=== PATIENT | female | born 1995 | race Caucasian/White ===

== ENCOUNTER 2024-04-12 15:42 | Outpatient (AMB) | payer OTHER, SELFPAY ==
[2024-04-12 15:44] VITALS: BP 122/66; BMI 24.7
--- NOTE | 2024-04-12 15:44 | A.OFFPC_ITS ---
Vital Signs 04/12/24 15:44 Height 5 ft 6 in Weight 153 lb BMI 24.7 BP 122/66 Blood Pressure Location Lt brachial Position Sitting Intake Visit Reasons: establish care/ PE Intake Note: Patient reported feeling depressed and anxious in the past 2 weeks but declined the questionaires because she has a therapist. Telecommunications Facility Examiner Required: No Allergies ciprofloxacin [Cipro] Allergy (Unknown, Verified 04/12/24 15:57) nausea and vomiting Medication List - Last Reconciled 04/12/24 by Stefani Ojeda PA-C albuterol sulfate mg inhalation hydroxyzine HCl 25 mg PO TID Tobacco use date assessed: 04/12/24 Dental Screening Dental Screen Date: 04/12/24 Did you have a dental visit in the last 12 months?: Yes Did you have a dental problem in the last 6 months where you did not have access to dental care?: No Was dental information given to patient?: Patient has dentist HPI establish care/ PE HPI Details 28-year-old female with no documented [facility] medical history coming to the office for the 1st time. Patient is not known to [facility]. Patient was previously seeing [facility] for anxiety and is still seeing a counselor there. She does mention she has been having increased anxiety since her medication has been discontinued and she has only been using is PRN. She follows with [facility] gynecology and has regular pap smears. She has also been followed with GI for chronic constipation and was supposed to have colonoscopy twice however had to be canceled due to poor prep. She states she has lots of issues with constipation and has chronic stomach pain. She has bowel movements inconsistently but never longer than 4-5 days without a bowel movement. She also mentions she has been having hair loss for the last year. 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 1. Little interest or pleasure in doing things: several days 2. Feeling down, depressed, or hopeless: more than half the days 3. Trouble falling or staying asleep, or sleeping too much: not at all 4. Feeling tired or having little energy: several days 5. Poor appetite or overeating: not at all 6. Feeling bad about yourself - or that you are a failure or have let yourself or your family down: several days 7. Trouble concentrating on things, such as reading the newspaper or watching television: not at all 8. Moving or speaking so slowly that other people could have noticed. Or the opposite - being so fidgety or restless that you have been moving around a lot m ore than usual: not at all 9. Thoughts that you would be better off or of hurting yourself in some way: not at all Total score: 5 Depression Screening Interpretation: Positive Depression Screening Follow-up: Existing condition, In treatment and New Medication prescribed Depression Screening Done: Yes 91098 - PHQ-9 Billing: Yes Source: Developed by Drs. Jay Feliciano, Leticia Moreno, Ronny Petersen and colleagues, with an educational everardo from [employer]. Thrive Questionnaire Date Thrive assessed: 04/12/24 I am a: Patient What is your living situation today?: I have a steady place to live Within the past 12 months, did the food you bought not last and you didn't have the money to get more?: Never true Within the past 12 months, did you worry whether your food would run out before you got money to buy more?: Never true THRIVE Score: 0 LINA-7 AMB Questionnaire LINA-7 Date LINA - 7 assessed: 04/12/24 Feeling nervous, anxious, or on edge: 1 = Several days Not being able to stop or control worryin = Nearly every day Worrying too much about different things: 3 = Nearly every day Trouble relaxin = More than half the days Being so restless that it is hard to sit still: 0 = Not at all Becoming easily annoyed or irritable: 2 = More than half the days Feeling afraid as if something awful might happen: 1 = Several days Total LINA-7 score (0-4 normal; 5-9 mild; 10-14 moderate; 15-21 severe): 12 Source: Developed by Drs. Jay Feliciano, Leticia Moreno, Ronny Petersen and colleagues, with an educational everardo from [employer]. LINA-7 Assessment Billing LINA-7 Assessment Tool: LINA-7 Assessment 97913 Review of Systems Const Denies body aches, Denies fatigue, Denies fever(s), Denies frequent falls, Reports headache(s) (occasional ) and Denies weakness Eyes Reports no additional complaints and Denies change in vision ENT Denies dysphagia, Denies dizziness, Denies facial pain, Reports headache(s) (occasional ), Denies nasal congestion and Denies odynophagia Card Denies chest pain, Denies syncope, Denies irregular heart rhythm, Denies leg edema, Denies lightheadedness and Denies dyspnea Resp Denies cough and Denies dyspnea GI Reports abdominal pain (with constipation), Reports constipation, Denies dysphagia, Denies dyspepsia, Denies diarrhea, Denies nausea, Denies odynophagia and Denies vomiting Denies urinary frequency, Denies dysuria, Denies urinary hesitancy and Denies urinary urgency Musc Denies back pain and Denies myalgias Skin/Breast Details: hair loss Neuro Denies dizziness, Denies syncope, Denies frequent falls, Reports headache(s) (occasional ) and Denies weakness Psych Reports no additional complaints Endo Denies fatigue Physical exam (Primary Care) BMI result Body Mass Index 24.7 Tobacco/Smoking Status: Current everyday smoker Are you ready to quit: Yes Tobacco cessation counseling provided: Yes Relapse Prevention: discussed the importance of a supportive environment and discussed dietary, exercise and/or lifestyle changes Number of minutes spent counselin CPT code: 03679 - 4-10 Minutes Depression Screening Interpretation: Positive Depression Screening Follow-up: Existing condition, In treatment and New Medication prescribed Advance Care Planning discussion: Completed/Scanned Date of discussion: 04/12/24 Who was present: Patient, grandmother Forms completed: Health Care Proxy and MOLST Time spent: 1-15 minutes, not on file Actual minutes spent: 5 Did not discuss due to Cultural/Spiritual beliefs: No Const General: cooperative, healthy appearing, comfortable and no acute distress Orientation/consciousness: patient oriented x3 HENMT Head: Yes normocephalic Ears: hearing grossly normal bilaterally General nose exam: Normal external nose present Eyes General: appearance normal, both eyes and all related structures Conjunctivae: conjunctivae normal Neck Neck: Yes full ROM and Yes no lymphadenopathy Resp Effort & Inspection: normal respiratory effort Auscultation: clear to auscultation bilaterally, no crackles, no rales, no rhonchi and no wheezes Cardio Rate: regular rate Rhythm: regular rhythm Skin General skin exam: no rashes or lesions noted Neuro General: patient oriented x3 Gait exam (Neuro): Normal gait present Extrem General: Yes normal to inspection, Yes full ROM and No edema Psych Affect: normal affect Attitude: cooperative Insight: Good insight present (Psych) Judgement: Good judgement present (Psych) Assessment and Plan Assessment & Plan (1) Depression: Code(s): F32.A - Depression, unspecified Plan: Continue to follow with [facility] for counselor and switch from p.r.n. hydroxyzine to once daily dosing. (2) Anxiety: Code(s): F41.9 - Anxiety disorder, unspecified Plan: She feels the hydroxyzine is working for her when she does have anxiety. Continue to follow with [facility] for counselor and switch from p.r.n. hydroxyzine to once daily dosing. (3) Asthma: Code(s): J45.909 - Unspecified asthma, uncomplicated Plan: Strongly advised to stopped smoking. Continue to use albuterol inhaler as needed and avoid triggers such as smoking and allergens. (4) Tobacco abuse: Code(s): Z72.0 - Tobacco use Plan: Strongly advised to stop smoking. Nicotine gum prescribed today. (5) Constipation: Code(s): K59.00 - Constipation, unspecified Plan: Patient has long history of constipation and was previously being followed by [facility] GI and was due to undergo a colonoscopy which was canceled twice due to bad prep. Advised patient to follow up with GI either at [facility] or [facility]. Referral placed today. (6) Hair loss: Code(s): L65.9 - Nonscarring hair loss, unspecified Plan: Ordered for blood work to look for again a cause of hair loss. Consider referral to Dermatology if blood work is negative. Plan Routine blood work ordered. Follow up in 3 months for annual exam. This note was constructed using voice recognition software. While every effort has been made to ensure accuracy and invoicing specialist, still areas may have been included sometimes these areas may affect the content or meeting of the given symptoms. Total time spent caring for the patient today was 30 minutes. This includes time spent before the visit reviewing the chart, time spent during the visit, and time spent after the visit and documentation. Orders: Orders IRON PROFILE Today L65.9 - Nonscarring hair loss, unspecified Complete Blood Count Auto Diff Today Z00.00 - Encounter for general adult medical examination without abnormal findings Vitamin D 25-OH (D2 and D3) Today Z00.00 - Encounter for general adult medical examination without abnormal findings Comprehensive Met. Panel Today Z00.00 - Encounter for general adult medical examination without abnormal findings Free T4 (Free Thyroxine) Today Z00.00 - Encounter for general adult medical examination without abnormal findings TSH reflex Free T4 Today Z00.00 - Encounter for general adult medical examination without abnormal findings Lipid Panel Today Z00.00 - Encounter for general adult medical examination without abnormal findings Vitamin B12 and Folate Today Z00.00 - Encounter for general adult medical examination without abnormal findings Referrals Gastroenterology Referral K59.00 - Constipation, unspecified Optometry Referral Z00.00 - Encounter for general adult medical examination without abnormal findings Medications: New hydroxyzine HCl 25 mg PO BID PRN 30 tabs 2RF anxiety albuterol sulfate 90 mcg/actuation 1 inh inhalation QID 8.5 grams 0RF nicotine (polacrilex) 4 mg buccal Q2H 20 ea 0RF Coding Level of Care Code New Pt Level 4 (63126) Diagnoses Depression F32.A Anxiety F41.9 Asthma J45.909 Tobacco abuse Z72.0 Constipation K59.00 Hair loss L65.9 Additional Codes LINA-7 Assessment Billing - LINA-7 Assessment Tool: LINA-7 Assessment 03531 ([id number]) Vital Signs *Quality* - CPT code: 65822 - 4-10 Minutes ([id number]) Vital Signs *Quality* - Advance Care Planning discussion: Completed/Scanned ([id number]) Vital Signs *Quality* - Time spent: 1-15 minutes, not on file ([id number])
== END 2024-04-12 16:30 | disposition home or self-care (01) ==
DX: K59.00 Constipation, unspecified (principal); F33.9 Major depressive disorder, recurrent, unspecified; F41.9 Anxiety disorder, unspecified; J45.909 Unspecified asthma, uncomplicated; F17.210 Nicotine dependence, cigarettes, uncomplicated; L65.9 Nonscarring hair loss, unspecified; Z00.00 Encounter for general adult medical examination without abnormal findings
CPT/HCPCS: 1123F; 99204

== ENCOUNTER 2024-07-12 14:33 | Outpatient (AMB) | payer OTHER, SELFPAY ==
--- OUTSIDE RECORDS SUMMARY | 2024-07-12 14:35 | XMS_ITS | Continuity of Care Document ---
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 Name Role Phone Fabiana Carrillo MD Primary Care Physician Encounter [facility] Date(s): 06/11/24 - 06/12/[address] [address]- Encounter Diagnosis Opioid withdrawal(Final) - 06/12/24 Discharge Disposition: A-D/C Home Attending Physician: Teresa Garland MD Admitting Physician: Teresa Garland MD Referring Physician: Not on Staff, Referring MD Encounter Type: Disch ES Allergies, Adverse Reactions, Alerts Substance Criticality Severity Reaction Reaction Severity Status ciprofloxacin Active Medications Albuterol (Eqv-ProAir HFA) See Instructions, Inhalation Every 6 hours, 0 Refills, Maintenance, 05/12/22 3:42:00 PM EDT, Partial fill upon patient request if the prescription is for a schedule II opioid drug. Start Date: 05/12/22 Status: Ordered Repeat number: 1 aspirin 325 mg oral delayed release tablet 325 mg, 1, tablet, By Mouth, Daily, # 25 tablet, Refills 0, Tot. Refills 0, Maintenance, 05/19/22 2:20:00 PM EDT, Route to Pharmacy Electronically, [facility], Partial fill upon patientrequest if the prescription is for a schedule II opioid drug., 168, cm, 05/19/22 12:12:00 EDT, Height, 87, kg, 05/13/22 16:08:00 EDT, Dry Weight Start Date: 05/19/22 Status: Ordered Quantity: 25.0 Unit: tablet Repeat number: 1 Augmentin 875 mg-125 mg oral tablet 1 tablet, By Mouth, Every 12 hours, for 7 days, # 14 tablet, 0 Refills, Acute 06/19/24 5:26:00 AM EST, 06/12/24 5:26:00 AM EST, Tablet, [id number], Partial fill upon patient request if the prescription is for a schedule II opioid drug., 168, cm, 06/12/24 4:05:00 EST, Height, 72.5, kg, 06/12/24 4:05:00 EST, Dry Weight Start Date: 06/12/24 Stop Date: 06/19/24 Status: Ordered Quantity: 14.0 Unit: tablet Repeat number: 1 dicyclomine 10 mg oral capsule 1 capsule = 10 mg, By Mouth, 4 times a day, 30 to 60 minutes before meals or as needed for IBS symptoms, # 120 capsule, 0 Refills, Maintenance, 01/19/24 3:49:00 PM EDT, Capsule, [id number], Partial fill upon patient request if the prescription is for a schedule II opioid drug., 168, cm, 07/27/23 13:28:00 EST, Height, 87, kg, 05/13/22 16:08:00 EDT, Dry Weight Start Date: 01/19/24 Stop Date: 02/18/24 Status: Ordered Quantity: 120.0 Unit: capsule Repeat number: 1 dicyclomine 10 mg oral capsule TAKE 1 CAPSULE (ORAL) 2 TIMES PER DAY NEEDED FOR 14 DAYS Start Date: 05/17/23 Status: Ordered Repeat number: 1 docusate sodium 100 mg oral capsule TAKE 1 CAPSULE BY MOUTH TWICE A DAY FOR 14 DAYS Start Date: 05/17/23 Status: Ordered Repeat number: 1 Golytely - oral powder for reconstitution 240 mL, By Mouth, Every 10 minutes, Please do not give patient lemon flavor. Follow instructions given to her from the office., # 1 each, 0 Refills, Maintenance, 11/06/23 6:03:00 PM EDT, REC Powder, [id number], Partial fill upon patient request if the prescription is for a schedule II opioid drug., 240 mL By Mouth Every 10 minutes,Instr:Please do not give patient lemon flavor. Follow instructions given to her from the office., 168, cm, 12/27/23 13:28:00 EST, Height, 87, kg, 05/13/22 16:08:00 EDT, Dry Weight Start Date: 11/06/23 Status: Ordered Quantity: 1.0 Unit: each Repeat number: 1 hydrOXYzine hydrochloride 10 mg oral tablet 2 tablet = 20 mg, By Mouth, 4 times a day, PRN for anxiety, # 80 tablet, 0 Refills, Maintenance, 05/17/23 10:51:00 AM EDT, Tablet, Partial fill upon patient request if the prescription is for a schedule II opioid drug. Start Date: 05/17/23 Status: Ordered Quantity: 80.0 Unit: tablet Repeat number: 1 Methadone Tablet 10 mg, Tablet, By Mouth, Once, STAT, 06/12/24 2:09:00 AM EST, Stop date 06/12/24 2:19:05 AM EST Start Date: 06/12/24 Stop Date: 06/12/24 Status: Completed Repeat number: 1 MiraLax oral powder for reconstitution = 17 Gm, By Mouth, 2 times a day, dissolve in water before taking, # 1,020 Gm, 1 Refills, Maintenance, 05/17/23 11:27:00 AM EDT, REC Powder, [id number], Partial fill upon patient request if the prescription is for a schedule II opioid drug., 17 Gm By Mouth 2 times a day,Instr:dissolve in water before taking, 168, cm, 05/17/23 10:42:00 EDT, Height, 87, kg, 05/13/22 16:08:00 EDT, Dry Weight Start Date: 05/17/23 Status: Ordered Quantity: 1020.0 Unit: g Repeat number: 2 Barbi 3 mg-0.02 mg oral tablet TAKE 1 TABLET BY MOUTH EVERY DAY Start Date: 05/17/23 Status: Ordered Repeat number: 1 NuLYTELY Lemon [place]in oral powder for reconstitution 240 mL, By Mouth, Every 10 minutes, # 1 each, 0 Refills, Maintenance, 07/27/23 3:55:00 PM EST, REC Powder, [id number], Partial fill upon patient request if the prescription is for a schedule II opioid drug., 168, cm, 07/27/23 13:28:00 EST, Height, 87, kg, 05/13/22 16:08:00 EDT, Dry Weight Start Date: 07/27/23 Status: Ordered Quantity: 1.0 Unit: each Repeat number: 1 Walker Walker, See Instructions, # 1 each, Refills 0, Tot. Refills 0, Maintenance, Diagnosis: post op kneepain, right side; weakness, 05/19/22 1:28:00 PM EDT, Supply Start Date: 05/19/22 Status: Ordered Quantity: 1.0 Unit: each Repeat number: 1 Results Radiology Reports * Exam Date Time Procedure Performing Provider Status 06/12/24 12:28 AM Forearm 2 Views Right Alisson Kelly ; Auth (Verified) Notes: (Forearm 2 Views Right) Reason For Exam: Puncture Wound RESULT: Forearm 2 Views Right Examination: Right forearm performed on 06/12/2024. History: Hx of Present Illness: reports bit by own dog, and opiod withdrawl, last used yesterday, requesting metadone; Reason: Puncture Wound; Clinical Question(s): Foreign Body Findings: Frontal and lateral views of the right forearm are submitted. No fractures or dislocations are demonstrated. There are no radiopaque foreign bodies. The soft tissues are unremarkable. IMPRESSION: Unremarkable examination. WSN: [id number] Ordering Physician: Nasrin Mckee Dictated By: Zehra Tyler MD Dictated Date/Time: 06/12/24 7:41 am Reviewed By: Zehra Tyler MD Signed By: Zehra Tyler MD Signed Date/Time: 06/12/24 7:41 am Transcribed By: ROMAN Transcribed Date/Time: 06/12/24 7:41 am * Exam Date Time Procedure Performing Provider Status 06/12/24 12:[address] Abd/Pelvis W/ IV Contrast Only Dipesh Akhtar; Auth (Verified) Notes: (CT Abd/Pelvis W/ IV Contrast Only) Reason For Exam: LLQ abdominal pain;Other: RESULT: CT Abd/Pelvis W/ IV Contrast Only CT Abd/Pelvis W/ IV Contrast Only Hx of Present Illness: reports bit by own dog, and opiod withdrawl, last used yesterday, requestingmetadone; Reason: Other:; LLQ abdominal pain; Clinical Question(s): Obstruction; Order Comment: TECHNIQUE: Spiral CT through the abdomen and pelvis with IV contrast formatted in 3 planes. 75 cc of Isovue 300 was administered intravenously. This study was performed without oral contrast. Weight-based protocol using automatic tube modulation was used to optimize exposure parameters. CTDIvol Body: 15.30 mGy, DLP Body: 760 mGy*cm. COMPARISON: 05/15/2022 FINDINGS: [employer] Truck [employer] View Findings, Lines and Tubes: None. Visualized Chest: Lung bases are clear. No pleural effusion. The heart is normal in size. No pericardial effusion. Diaphragm: Normal. Liver: Normal. Gallbladder: No CT evidence of gallbladder pathology. Bile ducts: No biliary ductal dilation. Spleen: Normal. Pancreas: Normal. Adrenal glands: Normal. Kidneys and ureters: No hydronephrosis, stones, or suspicious masses. Small hypodensities that are too small to characterize are noted, requiring no dedicated follow up. Bladder: Underdistended urinary bladder limiting evaluation. Reproductive organs: Unremarkable. Stomach, small bowel, and large bowel: Heterogeneous appearance and diffuse circumferential wall thickening in the mid rectum (series 201, image 103). Large volume stool in the ascending, transverse and proximal descending colon. No evidence of bowel obstruction. Appendix: Not seen, but no evidence of appendicitis. Peritoneum and retroperitoneum: No ascites or pneumoperitoneum. No omental or mesenteric lesions. Lymph nodes: No enlarged lymph nodes. Blood vessels: Normal. No aneurysm. No evidence of venous thrombosis. Abdominal and pelvic wall: Tiny fat-containing umbilical hernia. Bones: No acute abnormality. IMPRESSION: Diffuse circumferential wall thickening and surrounding fat stranding in the mid to distal rectum suggestive of proctitis. Moderate to large volume stool in the ascending, transverse and descending colon. Preliminary results were conveyed via secure message by Dr. Chowdhury to Nasrin HERNADEZ on 06/12/2024 at 1:05 AM with understanding acknowledged. I have personally reviewed the images and I agree with this report. WSN: [id number] Ordering Physician: Nasrin Mckee Dictated By: Christen Chowdhury MD Dictated Date/Time: 06/12/24 7:53 am Reviewed By: Imelda Hernandez MD Signed By: Imelda Hernandez MD Signed Date/Time: 06/12/24 7:58 am Transcribed By: ROMAN Transcribed Date/Time: 06/12/24 1:06 am Vital Signs Most recent to oldest [Reference Range]: 1 2 3 Height 168 cm (06/12/24 6:14 AM) 168 cm (06/12/24 4:05 AM) 168 cm (06/11/24 11:51 PM) Weight 72.5 kg (06/12/24 6:14 AM) 72.5 kg (06/12/24 4:05 AM) 72.5 kg (06/11/24 11:51 PM) Oxygen Saturation [94-100 %] 97 % (06/12/24 6:14 AM) 99 % (06/12/24 4:05 AM) 97 % (06/11/24 11:51 PM) Pulse Rate [55-90 bpm] 62 bpm (06/12/24 6:14 AM) 67 bpm (06/12/24 4:05 AM) 65 bpm (06/11/24 11:51 PM) Body Mass Index [18.5-24.99 kg/m2] 25.69 kg/m2 *H* (06/12/24 6:14 AM) 25.69 kg/m2 *H* (06/12/24 4:05 AM) 25.69 kg/m2 *H* (06/11/24 11:51 PM) Blood Pressure [90-138/55-84 mm Hg] 110/53mm Hg (06/12/24 6:14 AM) 108/55mm Hg (06/12/24 4:05 AM) 114/61mm Hg (06/11/24 11:51 PM) Respiratory Rate [16-30 br/min] 18 br/min (06/12/24 6:14 AM) 16 br/min (06/12/24 4:05 AM) 18 br/min (06/12/24 2:17 AM) Temperature [96.8-100.4 DegF] 98.7 DegF (06/12/24 6:14 AM) 99.3 DegF (06/11/24 11:51 PM) 98.1 DegF (06/11/24 6:59 PM) Mode of Delivery (Oxygen) Room air (06/12/24 6:14 AM) Room air (06/12/24 4:05 AM) Room air (06/11/24 11:51 PM) Blood pressure sites Arm, right (06/12/24 6:14 AM) Arm, left (06/12/24 4:05 AM) Arm, left (06/11/24 11:51 PM) Temperature Route Oral (06/12/24 6:14 AM) Oral (06/11/24 11:51 PM) Oral (06/11/24 6:59 PM) Dry Weight 72.5 kg (06/12/24 6:14 AM) 72.5 kg (06/12/24 4:05 AM) 72.5 kg (06/11/24 11:51 PM) Weight Obtained Via Patient/family state d (06/11/24 6:59 PM) Dry Weight Obtained Via Patient/family s tated (06/11/24 6:59 PM) EKG study * Event Display: EKG Authored Date: Note * Nasrin Keene: SIGN, PERFORM, SIGN, VERIFY Event Display: Patient Education Handout Authored Date: [id number] * Nasrin Keene: PERFORM Event Display: Patient Education Leaflets Authored Date: Dog Bite ?? [id number] Dog Bite A dog bite can cause a wound deep enough to break the skin. In these cases, the wound is cleaned and??sometimes??closed with stitches. Wounds will be closed if they're gaping open or in an area wherescarring is a concern, such as the face.??If??the wound is??closed,??it usually isn't??completely??closed. This is so that fluid can drain if the wound gets infected.??Often, wounds will be left opento heal.??A tetanus shot may be given. Home care ??? Wash your hands well with soap and warm water before and after caring for the wound. This helpslower the risk of infection. ??? Care for the wound as directed by your provider. If a dressing wasapplied to the wound, be sure to change it as directed. ??? If the wound bleeds, place a clean, soft cloth on the wound. Then, apply firm pressure until the bleeding stops. This may take up to 5 minutes. Don't release the pressure and look at the wound during this time. ??? Check the wound daily for signs of infection (see below). Most wounds heal within 10 days. But an infection can occur even with correct treatment. ??? If you???re given antibiotics, take them as directed. These medicines help prevent or treat infection. Be sure to take all of the medicine. Rabies prevention Rabies is a virus that can be carried in certain animals. These can include dogs and cats. Pets vaccinated against rabies are at very low risk of infection. But because human rabies is almost always fatal, any biting pet should be confined for 10 days as an extra precaution. In general, if there's a risk for rabies, you may need to take the following steps: ??? If someone???s dog has bitten you, it should be kept in a secure area for the next 10 days to watch for signs of illness. (If the pet director radiation oncology won???t allow this, contact your local animal control center.) Ask to see the pet's vaccinationrecords. If the dog stays healthy for the next 10 days, there's no danger of rabies in the animal or you. If the dog becomes ill or dies during that time, contact your local animal control center at once so the animal can be tested for rabies. ??? If a stray dog bites you, contact your local animalcontrol center. ??? If in the next 2 days you can???t find the animal that bit you, and if rabies exists in your area, you may need the rabies vaccine series. Call your health care provider, or go tot emergency room right away. ??? All animal bites should be reported to the local animal control center. If you weren't given a form to fill out when you got care for the bite, you can report it yourself. ?? Follow-up care Follow up with your health care provider, or as advised. ?? When to get medical advice Call your provider or get medical care right away if: ??? You have signs of infection such as: o Spreading redness or warmth from the wound. o Increased pain or swelling. o Fever of 100.4??F (38??C) or higher, or as directed by your provider. o Colored fluid or pus draining from the wound. ??? You have signs of rabies infection. But don't wait for any of the symptoms below to start. If you suspect that the dog that bit you is rabid or if the dog is lost and can't be found, you should get the vaccine series. Symptoms of rabies include: o Headache. o Confusion. o Strange behavior. o Increased salivating and drooling. o Seizure. o Hallucination, anxiety, or agitation. o Fever. ??? You have trouble moving any body part near the wound. ??? You have bleeding that can't be stopped after 5 minutes of firm pressure. ?? Last Reviewed Date: 2024 ?? [employer]. All rights reserved. This information is not intended as a substitute for professional medical care. Always follow your healthcare professional's instructions. ?? Patient Care team information Care Team Personnel Name: Fabiana Carrillo MD Position: Reference Physician Member Role: PCP Address: [address] [place] [address] Telecom: Name: [place] GARSIA, [facility] Position: S RN Member Role: Primary Care Nurse Care Team Related Persons Name: FAUSTINO RILEY Name: MARITA GODINEZ Insurance Providers Guarantor name: F[employer]I Health Plan Information #: 1 Payer: [employer] Member Number: [id number] Policy Number: FADI Group Number: [id number] Health Plan Information #: 2 Payer: [employer] Member Number: [id number] Policy Number: FADI Group Number: [id number]
[2024-07-12 14:41] VITALS: BP 102/60; PULSE 54; O2SAT 99; BMI 25.8
--- NOTE | 2024-07-12 14:41 | A.OFFPC_ITS ---
Vital Signs 07/12/24 14:41 Height 5 ft 6 in Weight 160 lb 2 oz BMI 25.8 BP 102/60 Blood Pressure Location Lt brachial Position Sitting Pulse 54 Pulse Source Pulse Oximeter Pulse Oximetry (%) 99 Oxygen Delivery Method Room Air Intake Visit Reasons: 3 month F/U Employee'S Representative Required: No Accompanied by: Self / Same As Patient Allergies ciprofloxacin [Cipro] Allergy (Unknown, Verified 07/12/24 14:45) nausea and vomiting Medication List - Last Reconciled 07/12/24 by Stefani Ojeda PA-C albuterol sulfate 90 mcg/actuation 1 inh inhalation QID hydroxyzine HCl 25 mg PO BID PRN nicotine (polacrilex) 4 mg buccal Q2H Tobacco use date assessed: 04/12/24 Dental Screening Dental Screen Date: 04/12/24 HPI 3 month F/U HPI Details 29-year-old female with past medical his tory anxiety, depression, asthma and tobacco abuse last seen April 2024 coming in for follow up. Patient was started on Hydroxyzine daily for anxiety. Patient has been taking 60 mg of hydroxyzine daily for anxiety and has noticed an improvement. She has tried BuSpar in the past and states she did not like the way she feels this medication. Despite using the hydroxyzine she feels her anxiety has been worse than usual. She also mentioned she continues to have hair loss and has not yet done the blood work. Lastly she tells us that she will have chest pain with activity while walking upstairs, during sexual activity or cardio exercise. The chest pain we will, shortness of breath and all feel like a pressure on the chest and a stabbing pain in the middle of the chest. Pain will resolve with rest. 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 Jay Feliciano, Leticia Moreno, Ronny Petersen and colleagues, with an educational everardo from [employer]. Review of Systems Const Denies body aches, Denies chills, Denies fever(s), Denies headache(s) and Denies poor appetite Eyes Reports no additional complaints ENT Denies dysphagia, Denies dizziness, Denies headache(s) and Denies odynophagia Card Denies chest pain, Reports chest pain with activity, Denies syncope, Denies edema, Denies irregular heart rhythm, Denies lightheadedness and Denies dyspnea Resp Denies cough and Denies dyspnea GI Denies abdominal pain, Denies constipation, Denies dysphagia, Denies diarrhea, Denies nausea, Denies odynophagia and Denies vomiting Reports no additional complaints Musc Reports no additional complaints and Denies abnormal gait Skin/Breast Reports system reviewed and no additional complaints, except as documented Neuro Denies abnormal gait, Denies dizziness, Denies syncope and Denies headache(s) Psych Reports no additional complaints Physical exam (Primary Care) Vital Signs: Last Vital Signs Pulse 54 07/12/24 14:41 BP 102/60 07/12/24 14:41 Pulse Ox 99 07/12/24 14:41 Oxygen Delivery Method Room Air 07/12/24 14:41 BMI result Body Mass Index 25.8 Tobacco/Smoking Status: Tobacco use Status Tobacco use date assessed 04/12/24 07/12/24 14:43 Patient Tobacco Use Status Current everyday Tobacco 07/12/24 14:43 Tobacco use type Cigarette 07/12/24 14:43 e-Cigarette/Vaping Use Currently Using 07/12/24 14:43 Thrive Assessment: Date of Thrive Assessment Date Thrive assessed 04/12/24 07/12/24 14:43 Const General: cooperative, healthy appearing, comfortable and no acute distress Orientation/consciousness: patient oriented x3 HENMT Head: Yes normocephalic Ears: hearing grossly normal bilaterally General nose exam: Normal external nose present Eyes General: appearance normal, both eyes and all related structures Conjunctivae: conjunctivae normal Neck Neck: Yes full ROM and Yes no lymphadenopathy Resp Effort & Inspection: normal respiratory effort Auscultation: clear to auscultation bilaterally, no crackles, no rales, no rhonchi and no wheezes Cardio Rate: regular rate Rhythm: regular rhythm Skin General skin exam: no rashes or lesions noted Neuro General: patient oriented x3 Gait exam (Neuro): Normal gait present Extrem General: Yes normal to inspection, Yes full ROM and No edema Psych Affect: normal affect Attitude: cooperative Insight: Good insight present (Psych) Judgement: Good judgement present (Psych) Coding Level of Care Code Est Pt Level 4 (54671) Diagnoses Chest pain on exertion R07.9 Hair loss L65.9 Tobacco abuse Z72.0 Anxiety F41.9 Assessment & Plan Assessment & Plan (1) Chest pain on exertion: Code(s): R07.9 - Chest pain, unspecified Category: Medical Plan: Referral placed to cardiology for stress test. Advised patient to avoid strenuous activity until she can have her chest pain evaluated. Denies any chest pain at rest or palpitations. (2) Hair loss: Code(s): L65.9 - Nonscarring hair loss, unspecified Category: Medical Plan: Advised patient to have blood work done to look for underlying cause. May use [id number] hair skin and Nails supplement. (3) Tobacco abuse: Code(s): Z72.0 - Tobacco use Category: Medical Plan: Smoking cigarettes and the use of tobacco can be harmful. We discussed the importance of stopping and options to aid in smoking cessation. (4) Anxiety: Comment: Counselor at [facility] Code(s): F41.9 - Anxiety disorder, unspecified Category: Medical Plan: Patient currently on hydroxyzine 60 mg daily. Feels her anxiety is not well managed at this time. We will start on sertraline 25 mg and follow up in 6 weeks. Continue to follow with counselor Plan This note was constructed using voice recognition software. While every effort has been made to ensure accuracy and exhibitions and collections manager, still areas may have been included sometimes these areas may affect the content or meeting of the given symptoms. Total time spent caring for the patient today was 30 minutes. This includes time spent before the visit reviewing the chart, time spent during the visit, and time spent after the visit and documentation. Orders: Orders CA stress test Today R07.9 - Chest pain, unspecified Medications: New sertraline 25 mg PO DAILY 30 tabs 2RF
== END 2024-07-12 15:12 | disposition home or self-care (01) ==
DX: R07.9 Chest pain, unspecified (principal); L65.9 Nonscarring hair loss, unspecified; Z72.0 Tobacco use; F41.9 Anxiety disorder, unspecified

== ENCOUNTER → 2024-07-12 14:33 | Outpatient (BNVA) | payer OTHER, SELFPAY | DX: R07.9 Chest pain, unspecified (principal); L65.9 Nonscarring hair loss, unspecified; F41.9 Anxiety disorder, unspecified; Z72.0 Tobacco use | CPT/HCPCS: 99212 ==

== ENCOUNTER → 2024-08-03 10:47 | Outpatient (REF) | payer OTHER, SELFPAY ==
--- NOTE | 2024-08-03 10:51 | CA_ITS ---
Acquisition Time: 2024-08-03 10:53:30 Total Exercise Time: 00:09:26 Test Indications: CP Medications: SEE H Protocol: JADE Max HR: 134 BPM 70% of Pred: 191 BPM Max BP: 104/050 mmHG Max Work Load: 10.8 METS Exercise Stress Test with exercise 9 mins 26 secs of Jade Protocol, achieving 70% MPHR, 9.8 METs, with reports of mild SOB and 6/10 chest heaviness that improved gradually in recovery, without any arrythmias, with baseline blood pressure at 90/50 that dropped to 68/40 with no dizziness, BP came up slowly after. Without EKG changes. Recommend to do an Echo. Test reviewed with Dr. Olvera. Referred By: Stefani Ojeda Overread By: Toy Stoll
== END ==
LOC: HO.CARD 10:47
DX: R07.9 Chest pain, unspecified (principal)
CPT/HCPCS: 93017

== ENCOUNTER → 2024-08-03 10:51 | Outpatient (BNV) | payer OTHER, SELFPAY | DX: R06.02 Shortness of breath (principal); R07.9 Chest pain, unspecified | CPT/HCPCS: 93016; 93018 ==

== ENCOUNTER → 2024-08-17 14:05 | Outpatient (REF) | payer OTHER, SELFPAY ==
--- NOTE | 2024-08-17 14:07 | CA_ITS ---
Transthoracic Echocardiogram Patient (Last, First, Middle): Sriram Denise, Gender: Female Date of : 1995 Age: 29 Procedure Date: 08/17/2024 Procedure Type: Transthoracic Echocardiogram Location: OP Height: 167.64 cm Weight: 72.58 kg BSA: 1.82 m2 Heart Rate: 66 bpm BP: 102 / 60 mmHg Sampler Ovens: KATIANA Referring MD: Stefani Ojeda PA-C Symptoms: R07.9 - Chest pain, unspecified Study Quality: Adequate ECG Rhythm: Sinus Conclusions: - Normal left ventricular size, thickness, systolic function, and wall motion. The visually estimated ejection fraction is between 55-60%. Diastolic function is normal for age. - Normal right ventricular cavity size and systolic function. - Both atria are normal in size. Findings Left Ventricle Normal left ventricular size, thickness, systolic function, and wall motion. The visually estimated ejection fraction is between 55-60%. Diastolic function is normal for age. Right Ventricle Normal right ventricular cavity size and systolic function. Atria Both atria are normal in size. Aortic Valve Normal aortic valve structure and function. There is no aortic valve stenosis. There is no aortic valve regurgitation. Mitral Valve The mitral valve appears normal. There is no mitral valve regurgitation. There is no mitral valve stenosis. Pulmonic Valve The pulmonic valve is normal. Tricuspid Valve Normal tricuspid valve structure. There is no tricuspid valve regurgitation. Tricuspid regurgitation envelope is inadequate for calculation of right ventricular systolic pressure. Normal right atrial pressure. Great Vessels All visible segments of the aorta are normal in size. The visualized portions of the pulmonary artery and branches are normal. Venous The inferior vena cava is normal in size and collapses greater than 50% with inspiration. Pericardium/Pleural There is no evidence of pericardial effusion. Prior Study Comparison No prior study available for comparison. Measurements 2D Linear Measurements IVSd: 0.74 0.6-0.9/0.6-1.0 cm LVIDd: 5.18 3.9-5.3/4.2-5.9 cm LVIDd Index: 2.85 2.4-3.2/2.2-3.1 cm/m2 LVIDs: 3.33 2.0-3.6 cm LVPWd: 0.79 0.7-1.1 cm LA Diam: 3.10 2.7-3.8/3.0-4.0 cm LAIDs Index: 1.70 1.5-2.3 cm/m2 LV Mass: 170.21 67-162/88-224 g LV Mass Index: 93.52 43-95/49-115 g/m2 LVOT Diam: 2.10 3.0+(-)1.3 cm 2D Systolic Function EF 4C: 65.20 >55% EF 2C: 68.50 >55% EF BiP: 66.10 >55% Mitral Valve MV Pk E: 0.80 MV PK A: 0.36 MV Decel Time: 167.00 E/A: 2.20 E'Lateral: 14.00 E'Medial: 12.70 E/E' Med: 6.30 E/E' Lat: 5.70 PHT: 49.00 MVA PHT: 4.49 Decel [place]: 4.76 Aortic Valve AoV Pk [place]: 1.40 AoV Pk Grad: 8.00 GILBERT: 3.06 LVOT LVOT Pk Ochoa: 1.24 LVOT Mn [place]choa: 0.83 LVOT VTI: 0.23 LVOT Pk Grad: 6.00 LVOT Mn Grad: 3.00 LVOT Diam: 2.10 LVOT Area: 3.46 Diastolic Function MV Pk E: 0.80 MV Pk A: 0.36 E/A: 2.20 E'Medial: 12.70 E/E' Med: 6.30 E' Laterial: 14.00 E/E' Lat: 5.70 Right Ventricle TAPSE (mm): 24.30 TVS' Ochoa: 12.60 Tricuspid Valve RA Press: 3.00 Great Vessels Aorta Sinus of Valsalva: 2.60 2.0-3.5 cm Ao Asc: 2.70 2.1-3.4 cm Pulmonary Veins Pulm Vein S/D 0.50 Pulmonary Valve PV Pk [place]: 1.25 Peak PV Grad: 6.00 Updated in Other Vendor System with Status of Final Shivam Patiño MD electronically signed on 08/18/2024 5:57:41 PM with status of Final
== END ==
LOC: HO.CARD 14:05
DX: R07.9 Chest pain, unspecified (principal)
CPT/HCPCS: 93306

== ENCOUNTER → 2024-08-17 14:07 | Outpatient (BNV) | payer OTHER, SELFPAY | PROVIDERS: Visit Provider Internal Medicine Cardiovascular Disease | DX: R07.9 Chest pain, unspecified (principal) | CPT/HCPCS: 93306 ==

== ENCOUNTER 2025-04-23 15:07 | Outpatient (REF) | payer OTHER, SELFPAY ==
[2025-04-23 16:28] LABS: MANUAL DIFF FLAG NO
[2025-04-23 17:39] LABS: Hematocrit 34.4 % (37.0-47.0); Hemoglobin 11.9 g/dl (12.0-16.0); Imm Gran Abs Auto 0.02 X10*3/uL (0.00-0.03); Imm Gran Pct Auto 0.3 % (0.0-0.4); Lymphocytes Absolute Auto 0.6 X10*3/uL (1.2-4.9); Mean Corpuscular HGB Conc 34.6 g/dl (31.0-35.0); Mean Corpuscular Hemoglobin 29.4 pg (27.0-33.0); Mean Corpuscular Volume 84.9 fL (80.0-98.0); NRBC Abs Auto 0.000 X10*3/uL (0.0-0.012); NRBC Pct Auto 0.0 /100WBC (0.0-0.2); Platelet Count 194 X10*3/uL (160-400); Red Blood Count 4.05 X10*6/uL (4.20-5.50); White Blood Count 7.7 X10*3/uL (4.8-10.8)
[2025-04-23 18:01] LABS: Alanine Aminotransferase 16 U/L (0-31); Albumin Level 5.0 g/dL (3.5-5.0); Alkaline Phosphatase 48 U/L (39-117); Anion Gap 12 (12-20); Aspartate Amino Transferase 18 U/L (5-31); Blood Urea Nitrogen 16 mg/dL (9-16); Calcium 9.7 mg/dL (8.4-10.2); Carbon Dioxide 28 mmol/L (22-29); Chloride 106 mmol/L (96-108); Cholesterol 176 mg/dL (<200); Estimated Glomerular Filt Rate > 60; HDL Cholesterol 65 mg/dL (>40); Iron 61 mcg/dL (30-160); Percent Iron Saturation 19 % (15-50); Potassium 4.5 mmol/L (3.3-5.1); Sodium 141 mmol/L (135-145); Total Iron Binding Capacity 319 mcg/dL (228-428); Total Protein 7.7 g/dL (6.5-8.0); Triglycerides 54 mg/dL (<150); Unsaturated Iron Binding 258 ug/dL
[2025-04-23 18:24] LABS: Folate 8.8 ng/mL (> or = 4.0); Vitamin B12 398 pg/mL (200-900)
== END 2025-04-23 15:08 | disposition home or self-care (01) ==
LOC: HO.LAB 15:07
DX: Z00.00 Encounter for general adult medical examination without abnormal findings (principal); Z13.29 Encounter for screening for other suspected endocrine disorder; Z13.21 Encounter for screening for nutritional disorder; Z13.220 Encounter for screening for lipoid disorders; Z72.0 Tobacco use; L65.9 Nonscarring hair loss, unspecified; F41.9 Anxiety disorder, unspecified; F32.A Depression, unspecified; J45.909 Unspecified asthma, uncomplicated; K59.00 Constipation, unspecified; R00.2 Palpitations; Z79.899 Other long term (current) drug therapy
CPT/HCPCS: 36415; 80053; 80061; 82306; 82607; 82746; 83540; 84443; 85025; 96127; 99395

== ENCOUNTER 2025-04-23 15:07 | Outpatient (AMB) | payer OTHER, SELFPAY ==
--- NOTE | 2025-04-23 15:20 | A.OFFPC_ITS ---
Vital Signs 04/23/25 15:22 Height 5 ft 6 in Weight 140 lb 4 oz BMI 22.6 BP 100/62 Blood Pressure Location Lt brachial Position Sitting Pulse 78 Pulse Source Pulse Oximeter Temp 97.4 F Temp Source Temporal Artery Scan Pulse Oximetry (%) 99 Oxygen Delivery Method Room Air Intake Visit Reasons: Annual Exam Intake Note: Patient is here today for a physical. Marketing Regional Consultant Required: No Data Recovery Planner: Not Required per policy Accompanied by: Self / Same As Patient Allergies ciprofloxacin (Cipro) Allergy (Unknown, Verified 04/23/25 15:38) nausea and vomiting Medication List - Last Reconciled 04/23/25 by Stefani Ojeda PA-C albuterol sulfate 90 mcg/actuation 1 inh inhalation QID hydroxyzine HCl 25 mg PO BID Tobacco use date assessed: 04/23/25 Dental Screening Dental Screen Date: 04/23/25 Did you have a dental visit in the last 12 months?: Yes Did you have a dental problem in the last 6 months where you did not have access to dental care?: No Was dental information given to patient?: Patient has dentist HPI Annual Exam HPI Details 29-year-old female with past medical his tory of asthma, anxiety, depression, tobacco abuse last seen 07/2024 coming in for annual exam. Presenting with gastrointestinal issues and anxiety. The patient reports severe abdominal pain exacerbated by pressure, described as the worst pain experienced, and associates it with bowel movements. The patient has not yet undergone a colonoscopy, which was previously recommended by her optical glass inspector due to these symptoms. The patient experiences significant anxiety, impacting her daily activities and focus. She reports taking hydroxyzine 50 mg as needed, up to twice daily, to manage her symptoms. The patient has not yet tried sertraline due to concerns about medication dependency. The patient describes her depression as fluctuating, with recent exacerbations linked to personal relationship stressors. The patient reports frequent dyspnea on exertion and uses an inhaler as needed, though she tries to minimize its use. She experiences nocturnal symptoms and has been prescribed a maintenance inhaler to use twice daily. The patient reports significant hair thinning and breakage, prompting further blood work to assess potential causes such as thyroid dysfunction or vitamin deficiencies. A Holter monitor has been ordered to evaluate for arrhythmias due to heart racing sensations. Pap smear: through [facility] Vaccinations: [facility] Medical History Epilepsy Surgical History History of tooth extraction H/O lateral meniscus repair of right knee Family History Paternal Grandfather Bladder cancer Maternal Grandfather Stomach cancer Social History Housing: House Alcohol intake: never Patient Tobacco Use Status: Former Tobacco user Tobacco use type: Cigarette Cigarettes Per Day: 4 e-Cigarette/Vaping Use: Currently Using Second Hand Smoke Exposure: Yes service: No Current occupational status: employed Current occupation: [employer] Cognitive needs: No Hearing needs: No Vision needs: No Questionnaire PHQ-9 Over the last 2 weeks, how often have you been bothered by any of the following problems? 1. Little interest or pleasure in doing things: more than half the days 2. Feeling down, depressed, or hopeless: several days 3. Trouble falling or staying asleep, or sleeping too much: several days 4. Feeling tired or having little energy: several days 5. Poor appetite or overeating: several days 6. Feeling bad about yourself - or that you are a failure or have let yourself or your family down: several days 7. Trouble concentrating on things, such as reading the newspaper or watching television: more than half the days 8. Moving or speaking so slowly that other people could have noticed. Or the opposite - being so fidgety or restless that you have been moving around a lot more than usual: several days 9. Thoughts that you would be better off or of hurting yourself in some way: not at all Total score: 10 Depression Screening Interpretation: Positive Depression Screening Follow-up: Existing condition and New Medication prescribed Depression Screening Done: Yes Source: Developed by Drs. Jay Feliciaon, Leticia Moreno, Ronny Petersen and colleagues, with an educational everardo from [employer]. Thrive Questionnaire Date Thrive assessed: 04/23/25 I am a: Patient What is your living situation today?: I have a steady place to live Within the past 12 months, did the food you bought not last and you didn't have the money to get more?: Sometimes True Within the past 12 months, did you worry whether your food would run out before you got money to buy more?: Sometimes True Do you have trouble paying for medicines?: No Do you have trouble getting transportation to medical appointments?: No Do you have trouble paying your heating and electricity bill?: I choose not to answer this question Do you have trouble taking care of your child, family member or friend?: No Do you have trouble with day-to-day activities such as bathing, preparing meals, shopping, managing finances, etc.?: I choose not to answer this question Are you currently unemployed and looking for a job?: No Are you interested in more education?: No Please select the resources that you would like help with: Food and Utilities Currently or been in a relationship where the following occur: No concerns reported THRIVE Score: 2 AUDIT C Alcohol Use Questionnaire (AUDIT-C) 1. How often do you have a drink containing alcohol?: Never Total Score: 0 LINA-7 AMB Questionnaire LINA-7 Date LINA - 7 assessed: 04/23/25 Feeling nervous, anxious, or on edge: 2 = More than half the days Not being able to stop or control worryin = Several days Worrying too much about different things: 2 = More than half the days Trouble relaxin = Not at all Being so restless that it is hard to sit still: 1 = Several days Becoming easily annoyed or irritable: 1 = Several days Feeling afraid as if something awful might happen: 0 = Not at all Total LINA-7 score (0-4 normal; 5-9 mild; 10-14 moderate; 15-21 severe): 7 Source: Developed by Drs. Jay Feliciano, Leticia Moreno, Ronny Petersen and colleagues, with an educational everardo from [employer]. LINA-7 Assessment Billing LINA-7 Assessment Tool: LINA-7 Assessment 79685 Review of Systems Const Denies body aches, Denies fatigue, Denies fever(s), Denies frequent falls, Denies headache(s) and Denies weakness Eyes Reports no additional complaints and Denies change in vision ENT Denies dysphagia, Denies dizziness, Denies facial pain, Denies headache(s), Denies nasal congestion and Denies odynophagia Card Denies chest pain, Denies syncope, Denies irregular heart rhythm, Denies leg edema, Denies lightheadedness, Denies dyspnea and Reports dyspnea on exertion Resp Denies cough, Denies dyspnea and Reports dyspnea on exertion GI Reports abdominal pain, Reports constipation, Denies dysphagia, Denies dyspepsia, Denies heartburn, Denies diarrhea, Denies nausea, Denies odynophagia and Denies vomiting Denies urinary frequency, Denies dysuria, Denies urinary hesitancy and Denies urinary urgency Musc Denies back pain and Denies myalgias Skin/Breast Reports system reviewed and no additional complaints, except as documented Neuro Denies dizziness, Denies syncope, Denies frequent falls, Denies headache(s) and Denies weakness Psych Reports no additional complaints Endo Denies fatigue Physical exam (Primary Care) Vital Signs: Last Vital Signs Temp 97.4 F 04/23/25 15:22 Pulse 78 04/23/25 15:22 BP 100/62 04/23/25 15:22 Pulse Ox 99 04/23/25 15:22 Oxygen Delivery Method Room Air 04/23/25 15:22 BMI result Body Mass Index 22.6 Tobacco/Smoking Status: Tobacco use Status Tobacco use date assessed 04/23/25 04/23/25 15:28 Patient Tobacco Use Status Former Tobacco user 04/23/25 15:28 Tobacco use type Cigarette 04/23/25 15:28 e-Cigarette/Vaping Use Currently Using 04/23/25 15:28 PHQ-9: PHQ-9 Score PHQ-9: Total score 10 04/23/25 15:52 Depression Screening Interpretation: Positive Depression Screening Follow-up: Existing condition and New Medication prescribed Thrive Assessment: Date of Thrive Assessment Date Thrive assessed 04/23/25 04/23/25 15:28 Currently or been in a relationship where the following occur: No concerns reported Const General: cooperative, healthy appearing, comfortable and no acute distress Orientation/consciousness: patient oriented x3 HENMT Head: Yes normocephalic Ears: hearing grossly normal bilaterally, external ears normal, TM's normal bilaterally and EAC's normal General nose exam: Normal external nose present Face and sinus: Yes normal facial exam and Yes sinuses nontender Mouth: Normal oral and palatal mucosa present and tongue normal Throat: Yes posterior oropharynx normal Eyes General: appearance normal, both eyes and all related structures Conjunctivae: conjunctivae normal Pupils: Equal, round and reactive pupils present EOM: EOMs intact bilaterally and No Nystagmus present Neck Neck: Yes normal visual inspection, Yes full ROM and Yes no lymphadenopathy Chest Chest palpation & inspection: normal inspection of the chest Resp Effort & Inspection: normal respiratory effort Auscultation: clear to auscultation bilaterally, no crackles, no rales, no rhonchi, no wheezes and breath sounds present Cardio Rate: regular rate Rhythm: regular rhythm Peripheral pulses: radial pulses present and dorsalis pedis present GI Inspection: Yes normal to inspection and No Abdominal wall edema Palpation (GI): Soft to palpation, not firm and nontender Auscultation: normal bowel sounds Rectal Exam - Female: deferred General: Yes no CVA tenderness Back/Spine/Pelvis Back: no CVA tenderness Skin General skin exam: no rashes or lesions noted Neuro General: patient oriented x3 Cranial nerves: Yes Equal, round and reactive pupils present, Yes Midline tongue present, Yes Ability to bilaterally elevate shoulders present and No Nystagmus present Gait exam (Neuro): Normal gait present Extrem General: Yes normal to inspection, Yes full ROM, No no pedal edema and No edema Psych Speech and movement: Normal speech and movement present Affect: normal affect Insight: Good insight present (Psych) Judgement: Good judgement present (Psych) Coding Level of Care Code Est Pt Prev Care 18-39y(94015) Diagnoses Annual physical exam Z00.00 Anxiety F41.9 Depression F32.A Asthma J45.909 Constipation K59.00 Palpitations R00.2 Additional Codes LINA-7 Assessment Billing - LINA-7 Assessment Tool: LINA-7 Assessment [id number] ([id number]) Assessment & Plan Assessment & Plan (1) Annual physical exam: Code(s): Z00.00 - Encounter for general adult medical examination without abnormal findings Category: Medical Plan: Patient is up-to-date on all recommended routine screenings and vaccinations for her age. Healthy diet and regular exercise is encouraged. 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 Code(s): F41.9 - Anxiety disorder, unspecified Category: Medical Plan: The patient reports significant anxiety affecting her daily life, for which she is currently taking hydroxyzine 50 mg as needed. Plan to trial Sertraline daily. 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 (3) Depression: Code(s): F32.A - Depression, unspecified Category: Medical Plan: see above (4) Asthma: Code(s): J45.909 - Unspecified asthma, uncomplicated Category: Medical Plan: The patient experiences dyspnea on exertion and nocturnal symptoms, indicating poorly controlled asthma. A maintenance inhaler has been prescribed for regular use, and a Holter monitor has been ordered to assess for any cardiac contributions to her symptoms. (5) Constipation: Code(s): K59.00 - Constipation, unspecified Category: Medical Plan: The patient has been experiencing severe abdominal pain associated with bowel movements, which has been identified as a gastrointestinal issue by her optical glass inspector. A colonoscopy has been recommended to further investigate these symptoms, and the patient has been advised to schedule this procedure. (6) Palpitations: Code(s): R00.2 - Palpitations Category: Medical Plan: The patient has a known heart murmur and experiences palpitations during physical exertion. A Holter monitor has been ordered to evaluate for arrhythmias. Cardiac stress test and echocardiogram have been normal. Plan This note was constructed using voice recognition software. While every effort has been made to ensure accuracy and aquarist, still areas may have been included sometimes these areas may affect the content or meeting of the given symptoms. Total time spent caring for the patient today was 30 minutes. This includes time spent before the visit reviewing the chart, time spent during the visit, and time spent after the visit and documentation. Patient was informed and verbally consented to the use of an ambient scribe for clinic note documentation during this visit. Orders: Orders ECG 3 day holter monitor Today R00.2 - Palpitations IRON PROFILE Today L65.9 - Nonscarring hair loss, unspecified Referrals Gastroenterology Referral K59.00 - Constipation, unspecified Medications: New hydroxyzine HCl 50 mg PO BID PRN 180 tabs 2RF anxiety propranolol 10 mg PO DAILY PRN 10 tabs 0RF anxiety budesonide-formoterol 80-4.5 mcg/actuation (Symbicort) 1 inh inhalation BID 10.2 grams 0RF Refilled albuterol sulfate 90 mcg/actuation 1 inh inhalation QID 8.5 grams 0RF sertraline 25 mg PO DAILY 30 tabs 2RF Discontinued hydroxyzine HCl Discontinued Reason: Patient no longer taking 25 mg PO BID 180 tabs 1RF for anxiety
[2025-04-23 15:22] VITALS: BP 100/62; PULSE 78; TEMP 36.3; O2SAT 99; BMI 22.6
--- OUTSIDE RECORDS SUMMARY | 2025-04-23 18:08 | XMS_ITS | Clinical Summary ---
Author Organization [facility] Address [address] [place] [address] Care Team Providers Care Buckler And Lacer Name Role Phone Erick Linn MD Primary Care Provider [phone] Allergies Active Allergy Reactions Criticality Noted Date Comments Ciprofloxacin 11/22/2017 Medications Medication Sig Dispensed Refills Start Date End Date Status escitalopram (LEXAPRO) 20 MG tablet 1 01/30/2016 Active lamoTRIgine (LAMICTAL) 100 MG tablet Only takes occasionally 6 01/09/2016 Active busPIRone (BUSPAR) 15 MG tablet TAKE 1 TABLET BY MOUTH DAILY 30 tablet 1 03/08/2016 Active Vit-Fe Fumarate-FA ( PLUS) 27-1 MG TABS tablet Take 1 tablet by mouth every morning after breakfast. 0 Active Active Problems Problem Noted Date Diagnosed Date Opioid use disorder, moderate, dependence 2017 Vaginal delivery 05/17/2018 Oligohydramnios 05/17/2018 39 weeks gestation of 05/16/2018 Anxiety 03/03/2016 Family History Medical History Relation Name Comments Crohn's disease Father Thyroid disease Mother Relation Name Status Comments Father Alive Mother Alive Social History Tobacco Use Types Packs/Day Years Used Date Smoking Tobacco: Every Day Cigarettes 0.5 6 Sex and Gender Information Value Date Recorded Sex Assigned at Not on file Gender Identity Not on file Sexual Orientation Not on file Last Filed Vital Signs Vital Sign Reading Time Taken Comments Blood Pressure 131/88 05/19/2018 8:11 AM EDT Pulse 60 05/19/2018 8:11 AM EDT Temperature 36.4 C (97.6 F) 05/19/2018 8:11 AM EDT Respiratory Rate 18 05/19/2018 8:11 AM EDT Oxygen Saturation 100% 05/19/2018 8:11 AM EDT Inhaled Oxygen Concentration - - Weight 72.6 kg (160 lb) 05/16/2018 10:26 AM EDT Height 167.6 cm (5' 6 ) 05/16/2018 10:26 AM EDT Body Mass Index 25.82 05/16/2018 10:26 AM EDT Plan of Treatment Health Maintenance Due Date Last Done Comments Hepatitis B Vaccines (1 of 3 - 3-dose series) 1995 Hepatitis C Screening 1995 COVID-19 Vaccine (#1) 1995 Pneumococcal Vaccine (1 of 2 - PCV) 2001 Depression Screening 2007 Preventative Health Evaluation 2013 DTap / Tdap / Td (1 - Tdap) 2014 Cervical Cancer Screening (P ap Smear) 2016 Influenza Vaccine (#1) 2025 RSV Ped < 20 months Aged Out No longe r eligible based on patient's age to complete this topic Advance Directives For more information, please contact: [phone] Documents on File Type Date Recorded Patient Associate Sales Expl anation Advance Directive and Living Will 10/21/2015 12:10 PM Latest Code Status on File Code Status Date Activated Date Inactivated Comments Full Code 05/16/2018 11:20 AM 05/20/2018 12:17 AM T his code status was ascertained in the following way: discussion with patient . Care Teams Buckler And Lacer Relationship Specialty Start Date End Date Erick Linn MD [address] [place] [address] PCP - General Internal Medicine 10/21/15
--- OUTSIDE RECORDS SUMMARY | 2025-04-23 18:08 | XMS_ITS | Clinical Summary ---
Author Organization [facility] Address [address] [place] [address] Care Team Providers Care Mystery Shopper Name Role Phone Erick Linn MD Primary Care Provider [phone] Surgical History Surgery Date Site/Laterality Comments KNEE SURGERY Right PROCEDURE: HISTORICAL KNEE SURGERY Medical History Medical History Date Comments Asthma 2017 DX:Asthma; COMME NT: pt reports only started with bronchitis early in Seizure disorder (CMS/HCC V2 4, CMS/HCC V28) DX:Seizure disorder (HCC); C OMMENT: last seizure in 2015, no meds x 1.5 years, previousl on Lamictal, but did not like SE Social History Tobacco Use Types Packs/Day Years Used Date Smoking Tobacco: Former Cigarettes Q uit: 01/24/2018 Smokeless Tobacco: Never Alcohol Use Standard Drinks/Week Comments No 0 (1 standard drink = 0.6 oz pur e alcohol) Comments Unknown Sex and Gender Information Value Date Recorded Sex Assigned at Not on file Legal Sex Female 3:36 PM EST Gender Identity Not on file Sexual Orientation Not on file Obstetrics History Plan of Treatment Health Maintenance Due Date Last Done Comments DTaP,Tdap,and Td Vaccines (1 - Tdap) 2014 Hepatitis B Vaccines (1 of 3 - 19+ 3-dose series) 2014 Cervical Cancer Screening: P ap Smear 2016 Depression Screening 08/01/2024 COVID-19 Vaccine ( - 2023-2 5 season) 2025 Influenza Vaccine (#1) 2025 HIB Vaccines Aged Out No longer eligi ble based on patient's age to complete this topic HPV Vaccines Aged Out No longer eligi ble based on patient's age to complete this topic Hepatitis A Vaccines Aged Out No long er eligible based on patient's age to complete this topic IPV Vaccines Aged Out No longer eligi ble based on patient's age to complete this topic MMR Vaccines Aged Out No longer eligi ble based on patient's age to complete this topic Meningococcal ACWY Vaccine Aged Out N o longer eligible based on patient's age to complete this topic Meningococcal B Vaccine Aged Out No l onger eligible based on patient's age to complete this topic Pneumococcal Vaccine: Pediat rics (0 to 5 Years) and At-Risk Patients (6 to 49 Years) Aged Out No longer eligible b ased on patient's age to complete this topic RSV Immunization Patients Un alirzea 20 months Aged Out No longer eligible b ased on patient's age to complete this topic Varicella Vaccines Aged Out No longer eligible based on patient's age to complete this topic Care Teams Mystery Shopper Relationship Specialty Start Date End Date Erick Linn MD [address] [facility] [address] [place] [id number] PCP - General Internal Medicine 10/21/15
--- OUTSIDE RECORDS SUMMARY | 2025-04-23 18:08 | XMS_ITS | Encounter Summary ---
Author Organization [facility] Address [address] [place] [address] Care Team Providers Care Cafeteria Operator Name Role Phone Erick Linn MD Primary Care Provider [phone] Encounter Details Date Type Department Care Team Description 04/27/2018 Records Encounter Delivery Room [address] [place] [address] Provider, Not In System Social History Tobacco Use Types Packs/Day Years Used Date Smoking Tobacco: Every Day Cigarettes 0.5 6 Sex and Gender Information Value Date Recorded Sex Assigned at Not on file Gender Identity Not on file Sexual Orientation Not on file documented as of this encounter Plan of Treatment Not on file documented as of this encounter Visit Diagnoses Not on filedocumented in this encounter Care Teams Cafeteria Operator Relationship Specialty Start Date End Date Erick Linn MD [address] [place] [address] PCP - General Internal Medicine 10/21/15 documented as of this encounter
--- OUTSIDE RECORDS SUMMARY | 2025-04-23 18:08 | XMS_ITS | Clinical Summary ---
Author Organization [facility] Address [address] [place] [id number] Care Team Providers Care Message Broker Developer Name Role Phone Unavailable Primary Care Provider Unavailabl e Social History Tobacco Use Types Packs/Day Years Used Date Smoking Tobacco: Never Assessed Comments Unknown Sex and Gender Information Value Date Recorded Sex Assigned at Not on file Legal Sex Female 12:21 PM EDT Gender Identity Not on file Sexual Orientation Not on file Last Filed Vital Signs Vital Sign Reading Time Taken Comments Blood Pressure 121/75 01/09/2016 2:44 PM EDT Pulse 50 01/09/2016 2:44 PM EDT Temperature - - Respiratory Rate 18 01/09/2016 2:44 PM EDT Oxygen Saturation - - Inhaled Oxygen Concentration - - Weight 69.8 kg (153 lb 15.9 oz) 01/09/2016 2:44 PM EDT Height 167.6 cm (5' 6 ) 01/09/2016 2:44 PM EDT Body Mass Index 24.85 01/09/2016 2:44 PM EDT Plan of Treatment Health Maintenance Due Date Last Done Comments Hepatitis C Virus Screening 1995 HIV Screening 2008 DTaP/Tdap/Td Vaccines (1 - Tdap) 2014 Hepatitis B Vaccines (1 of 3 - 19+ 3-dose series) 2014 HPV Vaccines (1 - 3-dose SCD M series) 2022 COVID-19 Vaccine (2023-2 5 season) 2025 Pneumococcal Vaccine: Pediat thalia (0-5 Years) and At-Risk Patients (6 to 49 Years) Aged Out No longer eligible b ased on patient's age to complete this topic
== END 2025-04-23 16:11 | disposition home or self-care (01) ==
LOC: HO.HMCH 15:07
DX: Z00.00 Encounter for general adult medical examination without abnormal findings (principal); F41.9 Anxiety disorder, unspecified; F32.A Depression, unspecified; J45.909 Unspecified asthma, uncomplicated; K59.00 Constipation, unspecified; R00.2 Palpitations